=== PATIENT | female | born 1990 | race Two or more races ===

== ENCOUNTER 2023-08-12 03:41 | Emergency (ER) | payer MEDICAID ==
[~2023-08-12] VITALS: Ht 170.2 cm; Wt 101.8 kg
[2023-08-12 03:48] VITALS: TEMP 100.1
[2023-08-12] MEDS: CefTRIAXone/D5W-Rocephin 1gm 50 ML IV ONE (04:57)
[2023-08-12] MEDS: normal saline 1000ML IV soln IVB ONE (04:57)
[2023-08-12] MEDS: acetaminophen 1,000mg/100ml IV 100 ML IV STA (04:58)
[2023-08-12 05:07] LABS: ALBUMIN 3.8 G/DL (3.4-5.0); ANION GAP 9 (8-16); BLOOD UREA NITROGEN 12 MG/DL (7-18); BUN/CREATININE RATIO 18.2 (10.0-20.0); CALCIUM 8.6 MG/DL (8.5-10.1); CHLORIDE 103 MMOL/L (99-107); CREATININE 0.66 MG/DL (0.40-0.90); GLUCOSE 99 MG/DL (70-104); POTASSIUM 3.7 MMOL/L (3.5-5.1); SODIUM 136 MMOL/L (135-145); TOTAL CARBON DIOXIDE 24.3 MMOL/L (24-32); eCRCL 121 ML/MIN; eGFR > 90 ML/MIN
[2023-08-12 05:10] LABS: BASOPHILS # (AUTO) 0.1 X10'3 (0-0.2); BASOPHILS % (AUTO) 0.5 % (0-1); EOSINOPHILS # (AUTO) 0.1 X10'3 (0-0.9); EOSINOPHILS % (AUTO) 0.5 % (0-6); HEMATOCRIT 41.9 % (35.0-45.0); HEMOGLOBIN 14.3 g/dl (12.0-16.0); LYMPHOCYTES # (AUTO) 1.4 X10'3 (1.1-4.8); MEAN CORPUSCULAR HEMOGLOBIN 29.9 PG (27.0-31.0); MEAN CORPUSCULAR HGB CONC 34.1 g/dL (33.0-36.5); MEAN CORPUSCULAR VOLUME 87.7 FL (78-98); MEAN PLATELET VOLUME 8.6 FL (7.4-10.4); MONOCYTES % (AUTO) 6.9 % (2-12); NEUTROPHILS # (AUTO) 11.4 X10'3 (1.8-7.7); NEUTROPHILS % (AUTO) 82.1 % (42-75); PLATELET COUNT 238 X10'3 (140-440); RED BLOOD COUNT 4.78 X10'6 (4.20-5.60); RED CELL DISTRIBUTION WIDTH 14.8 % (11.5-14.5); WHITE BLOOD COUNT 13.9 X10'3 (4.5-11.0)
[2023-08-12 05:23] VITALS: BP 106/61; PULSE 90; RESP 14; O2SAT 98
[2023-08-12] MEDS ORDERED: CEPH-585 PO (05:28)
[2023-08-12] MEDS ORDERED: SULF1TAB49 PO (05:28)
== END 2023-08-12 06:27 | disposition home or self-care (01) ==
LOC: ER 03:41
DX: L02.31 Cutaneous abscess of buttock (principal); L03.317 Cellulitis of buttock; Z88.5 Allergy status to narcotic agent
CPT/HCPCS: 36415; 71045; 80048; 84145; 85025; 87040; 96365; 96368; 99284; A6222; J0131; J0696; J7030; A6258

== ENCOUNTER 2023-08-12 23:18 | Emergency (ER) | payer MEDICAID ==
[~2023-08-12] VITALS: Ht 170.2 cm; Wt 101.8 kg
[~2023-08-12 23:18] MED LIST: CEPH-585 PO; SULF1TAB49 PO
[2023-08-13] MEDS: sulfamethoxazole/trimethoprim DS (800/160mg) tablet PO ONE (01:51)
[2023-08-13] MEDS: cephalexin 250mg capsule PO ONE (01:51)
[2023-08-13] MEDS: LIDOcaine 1% W/epiNEPHrine 1:100,000 20ml vial IJ ONE (01:52)
[2023-08-13 02:56] VITALS: BP 122/80; PULSE 95; RESP 14; TEMP 98.1; O2SAT 98
== END 2023-08-13 03:00 | disposition home or self-care (01) ==
LOC: ER 23:18
DX: L02.818 Cutaneous abscess of other sites (principal); Z88.8 Allergy status to other drugs, medicaments and biological substances; Z79.899 Other long term (current) drug therapy
CPT/HCPCS: 10060; 99283; A6258; A6266; A6449

== ENCOUNTER 2023-10-17 16:14 | Emergency (ER) | payer MEDICAID ==
[~2023-10-17] VITALS: Ht 172.7 cm; Wt 96.8 kg
[~2023-10-17 16:14] MED LIST changes: -SULF1TAB49 PO
[2023-10-17 16:55] LABS: BASOPHILS # (AUTO) 0.1 X10'3 (0-0.2); BASOPHILS % (AUTO) 0.6 % (0-1); EOSINOPHILS % (AUTO) 0.4 % (0-6); HEMATOCRIT 46.2 % (35.0-45.0); HEMOGLOBIN 16.1 g/dl (12.0-16.0); LYMPHOCYTES # (AUTO) 1.3 X10'3 (1.1-4.8); LYMPHOCYTES % (AUTO) 13.4 % (21-51); MEAN CORPUSCULAR HEMOGLOBIN 30.9 PG (27.0-31.0); MEAN CORPUSCULAR VOLUME 88.3 FL (78-98); MEAN PLATELET VOLUME 8.5 FL (7.4-10.4); MONOCYTES # (AUTO) 0.4 X10'3 (0-0.9); MONOCYTES % (AUTO) 3.7 % (2-12); NEUTROPHILS # (AUTO) 7.9 X10'3 (1.8-7.7); NEUTROPHILS % (AUTO) 81.9 % (42-75); PLATELET COUNT 327 X10'3 (140-440); RED BLOOD COUNT 5.23 X10'6 (4.20-5.60); RED CELL DISTRIBUTION WIDTH 12.9 % (11.5-14.5); WHITE BLOOD COUNT 9.7 X10'3 (4.5-11.0)
[2023-10-17 17:25] LABS: ALANINE AMINOTRANSFERASE 21 U/L (12-78); ALBUMIN 4.2 G/DL (3.4-5.0); ALBUMIN/GLOBULIN RATIO 1.1 (1.1-1.5); ALKALINE PHOSPHATASE 42 IU/L (46-116); ANION GAP 9 (8-16); ASPARTATE AMINO TRANSFERASE 13 U/L (10-37); BILIRUBIN,TOTAL 0.4 MG/DL (0.1-1.0); BLOOD UREA NITROGEN 13 MG/DL (7-18); BUN/CREATININE RATIO 23.2 (10.0-20.0); CALCIUM 9.5 MG/DL (8.5-10.1); CHLORIDE 104 MMOL/L (99-107); CREATININE 0.56 MG/DL (0.40-0.90); GLUCOSE 101 MG/DL (70-104); LIPASE 22 U/L (16-77); POTASSIUM 3.5 MMOL/L (3.5-5.1); SODIUM 140 MMOL/L (135-145); TOTAL CARBON DIOXIDE 27.3 MMOL/L (24-32); TOTAL PROTEIN 8.1 G/DL (6.4-8.2); eCRCL 147 ML/MIN; eGFR > 90 ML/MIN
[2023-10-17 18:29] LABS: HCG SERUM QL NEGATIVE
[2023-10-17] MEDS: ondansetron/PF 4mg/2ml inj IV ONE (18:42)
[2023-10-17] MEDS: ketorolac trometh 30MG/ML vial 30 MG/ML VIAL IV ONE (18:43)
[2023-10-17] MEDS: normal saline 1000ml 1,000 ML IV ONE (18:46)
[2023-10-17] MEDS: fentaNYL/PF 50MCG/1 ML 2ML syringe IV ONE ×2 (18:46→20:39)
[2023-10-17 18:55] VITALS: TEMP 97.5
[2023-10-17] MEDS: famotidine/PF 10 mg/ml inj IV ONE (19:45)
[2023-10-17] MEDS: mag hydrox/Alum hydrox/simeth 30ml oral suspension PO ONE (19:47)
[2023-10-17] MEDS: LIDOcaine 2% Viscous 15ml cup MM ONE (19:48)
[2023-10-17] MEDS ORDERED: ONDA-245 PO (21:14)
[2023-10-17] MEDS ORDERED: PANT-47 PO (21:14)
[2023-10-17] MEDS ORDERED: HYDR-3965 PO (21:14)
[2023-10-17] MEDS: pantoprazole 40 MG vial IV ONE (21:38)
[2023-10-17] MEDS: HYDROcodone/acetaminophen 5mg/325mg tablet PO ONE (21:43)
[2023-10-17 21:53] VITALS: BP 140/79; PULSE 65; RESP 23; O2SAT 97
== END 2023-10-17 21:50 | disposition home or self-care (01) ==
LOC: ER 16:14
DX: K29.00 Acute gastritis without bleeding (principal); Z88.5 Allergy status to narcotic agent; Z79.2 Long term (current) use of antibiotics
CPT/HCPCS: 36415; 74176; 76700; 80053; 83690; 84703; 85025; 96361; 96374; 96375; 96376; 99285; J1885; J2405; J2470; J3010; J3490; J7030

== ENCOUNTER 2024-12-29 21:25 | Emergency (ER) | payer MEDICAID ==
[~2024-12-29] VITALS: Ht 167.6 cm; Wt 81.0 kg
[~2024-12-29 21:25] MED LIST changes: -CEPH-585 PO; +ONDA-245 PO; +PANT-47 PO
--- NOTE | 2024-12-29 22:45 | Physician Documentation ---
History of Present Illness ~ Chief Complaint: Ingestion Error Stated Complaint: WITHDRAWLS/MH Time Seen by MD: 21:34 Primary Medical Doctor: ELEONORA HARPER Medication Reconciliation Allergies: Coded Allergies: hydromorphone (Verified Allergy, Unknown, hives, facial swelling, 12/29/24) Scheduled Ondansetron 8mg ODT (Ondansetron Odt), 1 TAB PO Q6H Pantoprazole Sodium (PROTONIX tablet), 1 TAB PO DAILY Past Medical History Smoking Status: Current every day smoker Review of Systems ROS As stated above in the HPI, otherwise all systems are reviewed and negative. Physical Exam Vital Signs: Temperature: 96.3, Source: Temporal, Heart Rate: 114, Respiratory Rate: 15, BP: 129/104, Pulse Oximetry: 99, Weight: 81.000 Physical Exam VITALS: Reviewed and as above. GENERAL: Alert, no apparent distress. HEENT: Normocephalic, atraumatic, PERRL, EOMI, dry mucosa, no erythema RESPIRATORY: Lungs clear, normal breath sounds, no respiratory distress. CHEST: No accessory muscle use, no retractions CV: Regular rate, rhythm, no edema, no murmur, No: JVD GI: Soft, non-tender, bowels sounds present, no rebound, guarding, or rigidity BACK: No CVA tenderness, or swelling MUSCULOSKELETAL No deformities, no edema SKIN: Warm and dry, no rash NEURO: Oriented x4, No motor or sensory deficit PSYCH: Normal mood and affect, no agitation Progress Results/Orders Results/Orders Vital Signs 12/29/24 21:26 Temp 96.3 Pulse 114 Resp 15 B/P (MAP) 129/104 Pulse Ox 99 Medical Decision Making Additional information obtaine: other Findings 34-year-old female presented to the ED for evaluation of venous concerns and social media senior associate needs. Patient reports methamphetamine use on Monday, with s ubsequent stress related to marital difficulties. She denies suicidal or homicidal ideation, feels safe, and has no acute medical complaints. Vitals and physical exam are within normal limits; no evidence of intoxication, withdrawal, or acute medical illness. Medical Decision-Making: No acute medical need identified; patient is medically stable and appropriate for discharge. Substance use disorder (methamphetamine) noted; per Society for Academic Emergency [employer] KATLIN-4 guidelines, brief ED intervention and referral to psychosocial support services were offered. Contact information for drug counseling and marriage counseling resources, consistent with best practices for addressing social determinants of health in the ED. Patient denies need for further medical or psychiatric intervention at this time. No evidence of withdrawal, overdose, or complications requiring admission. coordinator of library services evaluation completed; no unmet social needs requiring hospital admission identified. Discharge Plan: Patient advised to follow up with provided community resources if counseling is desired. Return precautions discussed, including instructions to return to ED for any new or worsening symptoms, safety concerns, or inability to access needed support. Patient verbalized understanding of discharge instructions and resources provided. No prescription or medical intervention required at this time. Disposition: Medically cleared for discharge. No medical or psychiatric admission indicated. Documentation of social risk factors and substance use provided in accordance with current ED best practices. Differential Dx:Considerations: Include: Alcohol abuse, Anxiety, Bipolar disorder, Conversion disorder, Delirium, Depression, Drug Overdose-Accidental, Drug Overdose-Intentional, Encephalopathy, Hallucinations, Homicidal, Liver failure, Panic disorder, Personality disorder, Renal failure, Respiratory failure, Schizophrenia, Substance abuse, Suicidal attempt, Suidical gesture, Other Departure Disposition: 01 HOME / SELF CARE / HOMELESS Impression: Primary Impression: General medical exam Condition: Stable Additional Instructions: Thank you for coming to the emergency department today. You were evaluated for concerns related to your veins and for social media senior associate support. You reported using methamphetamine on Monday and feeling stressed due to relationship difficulties. You are medically stable and do not need hospital admission at this time. What to do next: You have been given information about local resources for drug counseling and marriage counseling. If you feel you need help with substance use or relationship issues, please reach out to these services. Behavioral treatments like counseling and support groups can help with stress and substance use. If you experience any new symptoms such as chest pain, trouble breathing, severe anxiety, confusion, or thoughts of harming yourself or others, return to the emergency department or call 911 right away. If you feel unsafe at home or need help with housing, food, or other social needs, contact the social media senior associate resources provided to you. Take care of your health by avoiding further drug use, staying hydrated, and getting rest. If you have questions about your health or need follow-up care, contact your primary care provider. Important reminders: You are not alone. Support is available for substance use and relationship stress. Asking for help is a sign of strength. If you need more information about harm reduction, safer drug use, or mental health support, ask your provider or use the resources given to you. Keep this information for your records and share it with anyone helping you with your care. If you have any questions about your discharge instructions or need help understanding them, please contact your healthcare provider or return to the emergency department. Referrals: NO PRIMARY CARE PROVIDER (PCP) Education Educated: Patient Educated regarding: diagnosis, treatment, need for follow up Signature Scribe Signature: A Attestation: Scribed for Joann Garcia by LUCY Granado . 12/29/24 22:44 JOANN GARCIA Dec 29, 2024 22:45
[2024-12-29 22:53] VITALS: BP 145/95; PULSE 95; RESP 18; TEMP 96.3; O2SAT 99
== END 2024-12-29 22:55 | disposition home or self-care (01) ==
LOC: ER 21:25
DX: Z00.00 Encounter for general adult medical examination without abnormal findings (principal); F17.200 Nicotine dependence, unspecified, uncomplicated; Z88.5 Allergy status to narcotic agent
CPT/HCPCS: 99282

== ENCOUNTER 2024-12-30 02:52 | Emergency (ER) | payer MEDICAID ==
[~2024-12-30] VITALS: Ht 167.6 cm; Wt 92.7 kg
--- NOTE | 2024-12-30 03:11 | Physician Documentation ---
History of Present Illness General Stated Complaint: CHEST PAINS Time Seen by MD: 03:03 Primary Medical Doctor: ELEONORA HARPER History of Present Illness Initial Comments This is a 34-year-old female who on Monday did an unusually large dose of methamphetamines, seen here a proximally 4 hours ago for feeling anxious, discharge, returns complaining of bilateral chest tightness. He also reports ongoing sensation of anxiety. No palliating or aggravating factors. She understands that this is most likely related to methamphetamine use, however would like to get checked out to make sure she is not dying. She has not slept since consuming methamphetamines. She feels that this stuck in her sinuses. Denies any other symptoms. Has not done drugs since Monday, three days ago. She drinks copious amounts of alcohol but none right now Medication Reconciliation Allergies: Coded Allergies: hydromorphone (Verified Allergy, Unknown, hives, facial swelling, 12/29/24) Scheduled Ondansetron 8mg ODT (Ondansetron Odt), 1 TAB PO Q6H Pantoprazole Sodium (PROTONIX tablet), 1 TAB PO DAILY Review of Systems ROS 10 point review of systems was performed and unless noted above in HPI is negative for acute process/complaint. Physical Exam Physical Exam Physical Exam Physical examination: GENERAL: Awake, alert, oriented, GCS 15, no apparent distress, non-toxic appeari ng, answers questions, follows commands appropriately. Examined in bed 11. Accompanied by significant other. HEENT: Atraumatic, normocephalic, pupils equal, extraocular muscles intact Active gross movements, sclerae anicteric, mucus membranes moist, no stridor. NECK: Midline, no JVD CARDIOVASCULAR: Good skin perfusion without evidence of pallor, mottling. PULMONARY: Nonlabored, symmetric chest rise, no audible wheezing, no accessory muscle use, no respiratory distress, speaking in full sentences. GASTROINTESTINAL: Not distended. NEUROLOGIC: Lucid with normal mental status. Normal facial symmetry. Moves all extremities symmetrically and with purpose. No truncal ataxia. Speech is fluid without evidence of dysarthria or aphasia, no focal deficits appreciated. EXTREMITIES: Acute deformities Skin: warm, dry PSYCHIATRIC: Normal affect, normal insight, normal concentration. Focused exam: [] Progress Results/Orders Results/Orders Orders - SCHULACK,TERRANCE M DO Electrocardiogram (12/30/24 03:00) Chest,Single View (12/30/24 03:04) Hs Troponin I W Calculations (12/30/24 05:04) Completed Orders - TERRANCE KUMAR DO Lorazepam Inj (Ativan Inj) (12/30/24 03:05) Diphenhydramine Inj (Benadryl Inj.) (12/30/24 03:05) Cbc/Diff (12/30/24 03:04) Chest,Single View (12/30/24 03:04) PBNP (12/30/24 03:04) MG (12/30/24 03:04) Hcg Serum Ql (12/30/24 03:04) CMP (12/30/24 03:04) Hs Troponin I W Calculations (12/30/24 03:04) Lorazepam Tablet (Ativan Tablet) (12/30/24 03:10) Ethanol (12/30/24 03:08) Normal Saline 1000ml (0.9% Sodium Chlori (12/30/24 03:15) Diazepam Inj (Valium Inj) (12/30/24 03:20) Diphenhydramine Inj (Benadryl Inj.) (12/30/24 03:20) Medications Received in ER Medications (Trade) Dose Ordered Sig/Ibrahima Route PRN Reason Start Time Stop Time Status Last Admin Dose Admin Sodium Chloride 1,000 ml @ 1,000 mls/hr ONCE ONCE IV 12/30/24 03:15 12/30/24 04:14 DC 12/30/24 03:21 1,000 MLS/HR (Valium inj) 5 mg ONCE ONCE IV 12/30/24 03:20 12/30/24 03:21 DC 12/30/24 03:21 5 MG (Benadryl inj.) 50 mg ONCE ONCE IV 12/30/24 03:20 12/30/24 03:21 DC 12/30/24 03:21 50 MG Vital Signs 12/30/24 12/30/24 12/30/24 12/30/24 03:01 03:21 03:48 03:49 Temp 98.8 Pulse 104 86 Resp 22 16 22 20 B/P (MAP) 143/83 142/91 (108) Pulse Ox 99 99 O2 Flow Rate 2.0 12/30/24 12/30/24 12/30/24 03:52 04:03 05:08 Pulse 80 78 Resp 20 20 B/P (MAP) 126/74 (91) 128/68 (88) Pulse Ox 99 99 98 O2 Delivery Nasal Cannula* O2 Flow Rate 2 0 FiO2 28 Laboratory Tests Test 12/30/24 03:22 White Blood Count 7.2 Red Blood Count 4.88 Hemoglobin 14.6 Hematocrit 40.8 Mean Corpuscular Volume 83.7 Mean Corpuscular Hemoglobin 29.9 Mean Corpuscular Hemoglobin Concent 35.8 Red Cell Distribution Width 12.8 Platelet Count 342 Mean Platelet Volume 8.5 Neutrophils (%) (Auto) 58.3 Lymphocytes (%) (Auto) 32.2 Monocytes (%) (Auto) 7.2 Eosinophils (%) (Auto) 1.3 Basophils (%) (Auto) 1.0 Neutrophils # (Auto) 4.2 Lymphocytes # (Auto) 2.3 Monocytes # (Auto) 0.5 Eosinophils # (Auto) 0.1 Basophils # (Auto) 0.1 CBC Comment Sodium Level 138 Potassium Level 3.1 L Chloride Level 104 Carbon Dioxide Level 22.4 L Anion Gap 12 Blood Urea Nitrogen 10 Creatinine 0.72 Estimated GFR/1.73 m2 > 90 BUN/Creatinine Ratio 13.9 Glucose Level 92 Calcium Level 8.7 Magnesium Level 1.9 Total Bilirubin 0.7 Aspartate Amino Transf (AST/SGOT) 15 Alanine Aminotransferase (ALT/SGPT) 26 Alkaline Phosphatase 47 Troponin I High Sensitivity 7 Pro-B-Type Natriuretic Peptide 30 Total Protein 8.0 Albumin 4.1 Globulin 3.9 Albumin/Globulin Ratio 1.1 Human Chorionic Gonadotropin, Qual Negative Chemistry Comments Ethyl Alcohol Level < 10 EKG/XRAY/CT/US/VASC/MRI EKG : Additional Comment EKG was obtained and interpreted by myself shows sinus tachycardic, rate of 101, normal NC interval, narrow QRS, no QT prolongation, normal axis, no STEMI Medical Decision Making Additional information obtaine: old records, family Findings Facility Status: ED [facility], [facility] process The plan was discussed with the patient, who demonstrates clear understanding of the plan and is in agreement with the plan unless otherwise noted in the chart. All questions have been answered, all concerns were addressed unless otherwise documented. I was available throughout their ED stay for frequent reassessment and questions. Differential Diagnoses (considered and possible or likely): [Differential diagnosis considered includes methamphetamine induced chest pain, chest wall pain, pleurisy, pneumonia, pulmonary embolus, GERD, esophagitis, gastritis, anxiety, stress reaction, costochondritis, acute coronary syndrome, aortic dissection, pericarditis, myocarditis, or pneumothorax.] ??Differential Diagnoses (considered and unlikely, not requiring evaluation currently): [Aortic/great vessels dissection was considered but it is unlikely based on absence of ripping, tearing, migratory chest pain, absence of syncope or focal neurologic deficits, physical examination indicating equal and symmetric pulses.] MDM Data Please see [facility] for the following: Independent Historians and external Records Review. Historian: [Patient] Independent Historians: ?[Record review, significant other] Medication Management: [Reviewed medication list] Social History and determinants: [Reviewed] Please see the body of the note for the following: Any independent interpretations of ECG, imaging studies. All vitals signs/haemodynamics, ordered tests were independently reviewed and interpreted by myself. Nursing triage complaint and vitals reviewed, additional nursing notes were reviewed as available and I agree unless otherwise noted or documented in contradiction in the chart Vital Signs: Independently reviewed Labs: Independently interpreted Imaging: Independently interpreted Old Medical Records: Independently reviewed, see [facility] for relevant summary and information Pulse Oximetry: [100%] interpreted as [normal on room air] by me [Band Saw Operator: [Regular Rate, Regular rhythm, no ectopy, NSR] reviewed and interpreted by me] Additionally notably showing: [Hemodynamics reviewed. She is tachycardic but improved. No evidence of hypotension respiratory distress. Laboratory studies are unremarkable. CBC is normal without leukocytosis, without anemia or platelet abnormality. Metabolic parents she has a very mild hypokalemia. Otherwise unremarkable. Troponin is negative. BNP is normal. Beta hCG is negative. Ethanol is negative.] Tests considered but not ordered include: [Advanced imaging has been considerably does not appear to be necessary] Social Determinants of Health Impact: Patient was evaluated in [facility] [place] to healthcare due to below par ratio of patient to medical providers. [] Comorbid Conditions Impacting Present Evaluation and Care/Treatment: [Methamphetamine abuse] Management Discussions with other Healthcare Providers: [None] Treatment and Disposition Medication Management (Given or considered): []. See EMR for details Consideration for Hospitalization/Escalation/Deescalation of Care: Admission for observation has been considered, [however the patient is able to tolerate p.o., their symptoms are controlled, they are able to rely on oral medications, and their chief complaint/diagnosis can be managed on outpatient basis.] ?ED Course:?[No clinical deterioration] ?Shared decision making:?[Patient is hemodynamically stable for discharge home with follow with their primary care provider. [ ] Specific and cautious return precautions provided and discussed with full understanding. Any incidental findings were also discussed and follow up recommendations given. [] All questions answered. Patient/family were able to verbalize back return precautions. Patient/family agree to plan. Copies of imaging and laboratory studies were provided.] Code status:?FULL Please see the full Electronic Medical Record for full details of nursing documentation, medications list, other records of complete past medical history and conditions, vital signs, laboratory studies, and any radiologic study interpretations by radiologists. Portions of this note were completed using Fronto dictation software and as a result there may exist minor errors in spelling. I have reviewed elements of past family and social history and agree as included in note. Differential Diagnosis See the body of main note Departure Impression: Primary Impression: Methamphetamine intoxication Additional Impressions: Methamphetamine abuse Alcoholism Acute chest pain Condition: Improved Discharge Instructions: Nonspecific Chest Pain, Adult Referrals: NO PRIMARY CARE PROVIDER (PCP) Education Educated: Patient Educated regarding: diagnosis, treatment, prognosis, need for follow up Signature Scribe Signature: No scribe Attestation: Date: Dec 30, 2024 Time: 03:10 This note accurately reflects clinical decisions, work performed by myself, Terrance Kumar, TERRANCE MARI DO Dec 30, 2024 03:11
[2024-12-30] MEDS: diazepam inj 5 MG/ML inj. IV ONE (03:21)
[2024-12-30] MEDS: normal saline 1000ml 1,000 ML IV ONE (03:21)
[2024-12-30 03:33] LABS: MEAN PLATELET VOLUME 8.5 FL (7.4-10.4); RED CELL DISTRIBUTION WIDTH 12.8 % (11.5-14.5)
[2024-12-30 03:47] LABS: HCG SERUM QL NEGATIVE
[2024-12-30 03:55] LABS: CREATININE 0.72 MG/DL (0.40-0.90); ETHANOL < 10 MG/DL (<10); PRO BRAIN NATRIURETIC PEPTIDE 30 PG/ML (0-125); TOTAL CARBON DIOXIDE 22.4 MMOL/L (24-32); eCRCL 105 ML/MIN; eGFR > 90 ML/MIN
--- NOTE | 2024-12-30 04:54 | RADIOLOGY REPORT ---
CHEST RADIOGRAPH Indication: Chest pain after using meth Technique: Single frontal view of the chest was obtained COMPARISON: DI CHEST,SINGLE VIEW on DOS: 08/12/23 FINDINGS: Lines and Tubes: None Lungs: Clear Pleura: No effusion. No pneumothorax. Cardiomediastinal contours: Unremarkable Bones: Unremarkable IMPRESSION: 1. No acute disease.
--- NOTE | 2024-12-30 05:35 | ELECTROCARDIOGRAPH REPORT ---
[facility] Test Date: 2024-12-30 Test Time: 02:56:09 Pat Name: NORA DAVIES Department: EMERGENCY ROOM Room: Gender: F Collections Representative: DANIA : 1990 Requested By: SHIREEN KUMAR Order Number: [id number] Reading MD: Dr. Mitch Chaudhry Measurements Intervals Mikana Rate: 101 P: 81 TN: 120 QRS: 75 QRSD: 93 T: 10 QT: 327 QTc: 424 Interpretive Statements Sinus tachycardia LAE, consider biatrial enlargement Inferior infarct, age indeterminate Electronically Signed On 12-30-2024 6:15:[address] Mitch Chaudhry Please click the below link to view image of tracing.
[2024-12-30 06:13] VITALS: BP 134/84; PULSE 70; RESP 18; TEMP 98.2; O2SAT 99
== END 2024-12-30 06:21 | disposition home or self-care (01) ==
LOC: ER 02:52
DX: R07.9 Chest pain, unspecified (principal); F15.129 Other stimulant abuse with intoxication, unspecified; F10.20 Alcohol dependence, uncomplicated; F41.9 Anxiety disorder, unspecified; Z88.5 Allergy status to narcotic agent; Z79.899 Other long term (current) drug therapy; Y90.9 Presence of alcohol in blood, level not specified
CPT/HCPCS: 36415; 71045; 80053; 80320; 83735; 83880; 84484; 84703; 85025; 93005; 96361; 96374; 96375; 99285; J1200; J3360; J7030; A4615